=== PATIENT | male | born 1980 | race Caucasian/White ===

== ENCOUNTER 2016-12-03 09:04 | Emergency (ER) | payer OTHER ==
[~2016-12-03] VITALS: Ht 167.6 cm; Wt 118.5 kg
[2016-12-03 09:05] VITALS: Ht 167.6 cm; Wt 118.5 kg
--- NOTE | 2016-12-03 09:41 | RADRPT ---
PROCEDURE: XR Left an CLINICAL INDICATION: Pain TECHNIQUE: AP, oblique and lateral views of the left hand were obtained. COMPARISON: No prior studies are available for comparison. FINDINGS: There is no evidence of acute fracture dislocation. The bony mineralization is normal. No focal bereket [place] blastic or lytic lesions. No evidence of erosions. There is a surgical clip is seen along the r adial dorsal distal left radius. IMPRESSION: No evidence of acute fractures or dislocations. RPTAT:AAJJ Physician Sandra Date Time Electronically viewed and signed by Margaret Gilbert Physician on 12/03/2016 09:41 /
[2016-12-03] MEDS ORDERED: IBUP-1542 PO (09:50)
--- NOTE | 2016-12-03 10:05 | ERD ---
ER Documentation Chief Complaint Date/Time DATE: 12/03/16 TIME: 09:57 Chief Complaint base of left 4th digit, pain, no deformity s/p injury playing basketball HPI This is a 36-year-old male that presents to the ER stating that he hurt his left fourth digit while playing basketball about 4 weeks ago. 2 weeks ago patient went to all review and was diagnosed with a hand contusion, on his paperwork etc. follow-up for possible hand fracture, and patient thought he had a fracture. Patient states that he has pain whenever he moves his finger up and down and pain is worse in the morning. Is also noticed slight swelling of his joints. He denies any redness fevers or chills. He does admit to some mild numbness of the fingertip in the morning as well. Patient denies any wrist , elbow, shoulder pain. Patient has been smoking marijuana for the fracture and states that he feels better. ROS 12 point review of systems was done, all negative except per HPI. Medications Home Meds Active Scripts Ibuprofen* (Motrin*) 600 Mg Tab, 600 MG PO Q6, #30 TAB Prov:HANKANN 12/03/16 Allergies Allergies: Coded Allergies: No Known Allergy (Unverified , 12/03/16) PMhx/Soc History of Surgery: Yes (L wrist surgery) Anesthesia Reaction: No Hx Neurological Disorder: No Hx Respiratory Disorders: No Hx Cardiac Disorders: No Hx Psychiatric Problems: No Hx Miscellaneous Medical Probl: No Hx Alcohol Use: No Hx Substance Use: No Hx Tobacco Use: No Smoking Status: Never smoker Physical Exam Vitals Vital Signs Date Time Temp Pulse Resp B/P Pulse Ox O2 Delivery O2 Flow Rate FiO2 12/03/16 09:05 97.9 60 18 140/79 98 Physical Exam GENERAL: The patient is well developed and appropriate for usual state of health , in no apparent distress. HEENT: Atraumatic. Conjunctivae are pink. Pupils equal, round, and reactive to light. Extraocular muscles are grossly intact. Bilateral tympanic membranes are clear with no evidence of erythema, effusion or dulling of the light reflex. The oropharynx is clear with no erythema or exudates. NECK: C-spine is soft and supple. There is no cervical lymphadenopathy. CHEST: Clear to auscultation bilaterally. There are no rales, wheezes or rhonchi. HEART: Regular rate and rhythm. No murmurs, clicks, rubs or gallops. ABDOMEN: Soft, nontender and nondistended. Good bowel sounds. No rebound or guarding. No gross peritonitis. No gross organomegaly or masses. No Bae sign or McBurney point tenderness. BACK: No midline or flank tenderness. EXTREMITIES: The left hand is without obvious asymmetry or deformity when compared to the right hand. There is no swelling, erythema, atrophy, obvious deformity. No surface trauma, open wounds. Normal cascade of fingers. Normal flexion extension of fingers. FDS FDP are intact against resistance. No focal fullness, throbbing pain, swelling of fingertips. Patient is tender to palpation to the MCP joint of the fourth digit, however he has full range of motion there is no swelling or erythema of the joint. Normal capillary refill. Patient has full and nonpainful range of motion of his wrist there is a scar from previous surgery. NEURO: Alert and oriented. SKIN: There is no apparent rash or petechia. The skin is warm and dry. Results 24 hrs [place] [id number] Radiology Main Line: [phone] DIAGNOSTIC IMAGING REPORT Patient: BEATRIZ COBURN : 1980 Age: 36 Sex: M MR #: [id number] DOS: 12/03/16 0000 Ordering MD: ANN MCKINNEY PA-C Location: [facility] Room/Bed: PROCEDURE: XR Left an CLINICAL INDICATION: Pain TECHNIQUE: AP, oblique and lateral views of the left hand were obtained. COMPARISON: No prior studies are available for comparison. FINDINGS: There is no evidence of acute fracture dislocation. The bony mineralization is normal. No focal bony blastic or lytic lesions. No evidence of erosions. There is a surgical clip is seen along the radial dorsal distal left radius. IMPRESSION: No evidence of acute fractures or dislocations. RPTAT:AAJJ Physician Sandra Date Time Electronically viewed and signed by Physician Sandra on 12/03/2016 09:41 BM/ CC: ANN MCKINNEY Procedures/MDM Differential diagnosis includes but is not limited to; fracture, dislocation, flexor tenosynovitis, cellulitis, felon, paronychia, ligament injury, deep space infection, compartment syndrome. This is a 36-year-old male presents to the left fourth digit pain x-ray was taken however there is no evidence of fracture. Upon review of patient's paperwork from all review he was only diagnosed with a contusion and not a fracture. Patient is afebrile with no redness or swelling of any part of his hand I doubt septic joint or deep space infection. Patient is comfortable without significant pain I doubt compartment syndrome. Patient was put in a metal splint he was neurovascularly intact before and after splint application. Patient will be sent home with ibuprofen he is to follow-up with his primary care doctor within 1-2 days or return to ER sooner if symptoms worsen. My medical decision making shared with the patient he understands and agrees with plan. Departure Diagnosis: Primary Impression: Hand pain, left Condition: Stable Patient Instructions: Hand and Wrist Exercises: Finger Professor Of Rhetoric and Release Additional Instructions: Call your primary care doctor TOMORROW for an appointment during the next 1-2 days.See the doctor sooner or return here if your condition worsens before your appointment time. ANN MCKNINEY Dec 03, 2016 10:05
== END 2016-12-03 10:02 | disposition home or self-care (01) ==
LOC: FTE 09:04
DX: M79.642 Pain in left hand (principal)